=== PATIENT | female | born 1990 | race Caucasian/White ===

== ENCOUNTER 2021-10-02 11:45 | Inpatient (IN) | payer BC ==
[~2021-10-02] VITALS: Ht 160 cm; Wt 84.7 kg
[2021-10-02] VITALS (25 sets, daily range): BP systolic 106–140; BP diastolic 55–86
[2021-10-02 12:23] LABS: BILIRUBIN,URINE NEGATIVE (NEGATIVE); CLARITY,URINE CLOUDY; COLOR,URINE YELLOW; GLUCOSE, URINE (UA) NEGATIVE (NEGATIVE); KETONES,URINE NEGATIVE (NEGATIVE); LEUKOCYTE ESTERASE ,URINE 3+ (NEGATIVE); NITRITE,URINE NEGATIVE (NEGATIVE); PH,URINE 6.5 (5-9); PROTEIN,URINE TRACE (NEGATIVE)
[2021-10-02 12:37] LABS: BACTERIA,URINE MODERATE /HPF; RBC,URINE 0-2 /HPF; WBC,URINE >100 /HPF
[2021-10-02 12:38] LABS: YEAST,URINE FEW /HPF
[2021-10-02] MEDS ORDERED: AMPICILLIN FOR IV USE 2,000 MG in NS (IVPB) 50 ML IV SCH (13:11)
[2021-10-02] MEDS ORDERED: OXYTOCIN PRE-MIX DRIP 500 ML IV SCH ×2 (13:15→23:00)
[2021-10-02] MEDS ORDERED: MINERAL OIL 30 ML TOP PRN (13:15)
[2021-10-02] MEDS ORDERED: AMPICILLIN 2,000 MG/14.8 ML (IV USE) ONE (13:17)
[2021-10-02] MEDS ORDERED: D5 LR IV SOLUTION 1,000 ML IV ONE (13:17)
[2021-10-02] MEDS ORDERED: WATER (STERILE) FOR INJECTION 0 ML ONE (13:17)
[2021-10-02] MEDS: D5 LR IV SOLUTION 1,000 ML IV SCH ×2 (13:38→21:10)
[2021-10-02 13:54] LABS: BASOPHILS % (AUTO) 0 % (0-10); EOSINOPHILS # (AUTO) 0.5 10^3/uL (0.0-0.3); EOSINOPHILS % (AUTO) 5 % (0-10); HEMATOCRIT 36 % (35-52); HEMOGLOBIN 11.9 g/dL (11.5-16.0); LYMPHOCYTES # (AUTO) 1.6 10^3/uL (1.0-4.0); LYMPHOCYTES % (AUTO) 18 % (12-44); MEAN CORPUSCULAR HEMOGLOBIN 29 pg (25-34); MEAN CORPUSCULAR HGB CONC 33 g/dL (32-36); MEAN CORPUSCULAR VOLUME 88 fL (80-99); MONOCYTES # (AUTO) 0.7 10^3/uL (0.0-1.0); MONOCYTES % (AUTO) 7 % (0-12); NEUTROPHILS # (AUTO) 6.2 10^3/uL (1.8-7.8); NEUTROPHILS % (AUTO) 68 % (42-75); PLATELET COUNT 285 10^3/uL (130-400)
--- NOTE | 2021-10-02 17:39 | History & Physical-OB ---
OB - Chief Complaint & HPI Date/Time Date of Admission: Date of Admission: Oct 02, 2021 at 13:09 Date seen by a Provider: Oct 02, 2021 Time Seen by a Provider: 12:05 Chief Complaint/History Hx : 3 Hx Para: 2 Expected Date of Delivery: Sep 23, 2021 Gestational Age in Weeks: 41 Gestational Age in Days: 2 Other reason for admission: She came in to check on her baby because she is post dates. + FM. Occassional mild ctxs. No LOF or Vag bleeding History of Labs O+, Ab neg, Rub Imm HIV/RPR/HepB/C NR GBS + in urine on admit Normal 1 hr GTT Allergies and Home Medications Allergies Coded Allergies: No Known Drug Allergies (Unverified , 10/02/21) Patient Home Medication List Home Medication List Reviewed: Yes OB - History Hx of Present Care: Yes Ultrasounds: Normal mid trimester US Obstetrical Complications: None Medical Complications: None Obstetrical History Hx : 3 Hx Para: 2 Hx # Term Pregnancies: 2 Delivery History Hx Dystocia: No Hx Forceps Assisted Delivery: No Hx Vacuum Extraction Assisted: No Hx Distress: No Patient Past Medical History None Social History/Family History Alcohol Use: Denies Use Recreational Drug Use: No Smoking Cessation: Never smoker 2nd Hand Smoke Exposure: No Immunizations Influenza Vaccine Up-to-Date: No; Not Current Tetanus Booster (TDap): Less than 5yrs (07/19/21) Rubella: immune RPR/VDRL: Negative GBS Status: Positive HBsAG: Negative OB - Admission Exam Physical Exam Vitals: Vital Signs 10/02/21 12:12 Temp 36.4 Pulse 82 Resp 18 Pulse Ox 99 O2 Delivery Room Air HEENT: NCAT Heart: Rhythm Normal Lungs: Clear Abdomen: Gravid Cervical Dilatation: 3cm Effacement: 75% Station: +1 Membranes: Intact Heart Rate: 140's Accelerations: Accelerations Present Decelerations: Variable Decelerations Short Term Variability: Present Resident Care Manager Rn Variability: Average (6-25) Contractions on Admission: >10 Minutes Apart Intensity: Moderate Labs Laboratory Tests Test 10/02/21 12:00 10/02/21 13:31 Range/Units Urine Color YELLOW Urine Clarity CLOUDY Urine pH 6.5 5-9 Urine Specific [place] 1.025 H 1.016-1.022 Urine Protein TRACE H NEGATIVE Urine Glucose (UA) NEGATIVE NEGATIVE Urine Ketones NEGATIVE NEGATIVE Urine Nitrite NEGATIVE NEGATIVE Urine Bilirubin NEGATIVE NEGATIVE Urine Urobilinogen 1.0 < = 1.0 MG/DL Urine Leukocyte Esterase 3+ H NEGATIVE Urine RBC (Auto) TRACE-I H NEGATIVE Urine RBC 0-2 /HPF Urine WBC >100 H /HPF Urine Squamous Epithelial Cells 10-25 H /HPF Urine Crystals NONE /LPF Urine Bacteria MODERATE H /HPF Urine Casts NONE /LPF Urine Mucus SMALL H /LPF Urine Yeast FEW H /HPF Urine Culture Indicated YES White Blood Count 9.0 4.3-11.0 10^3/uL Red Blood Count 4.05 3.80-5.11 10^6/uL Hemoglobin 11.9 11.5-16.0 g/dL Hematocrit 36 35-52 % Mean Corpuscular Volume 88 80-99 fL Mean Corpuscular Hemoglobin 29 25-34 pg Mean Corpuscular Hemoglobin Concent 33 32-36 g/dL Red Cell Distribution Width 14.3 10.0-14.5 % Platelet Count 285 130-400 10^3/uL Mean Platelet Volume 10.0 9.0-12.2 fL Immature Granulocyte % (Auto) 1 % Neutrophils (%) (Auto) 68 42-75 % Lymphocytes (%) (Auto) 18 12-44 % Monocytes (%) (Auto) 7 0-12 % Eosinophils (%) (Auto) 5 0-10 % Basophils (%) (Auto) 0 0-10 % Neutrophils # (Auto) 6.2 1.8-7.8 10^3/uL Lymphocytes # (Auto) 1.6 1.0-4.0 10^3/uL Monocytes # (Auto) 0.7 0.0-1.0 10^3/uL Eosinophils # (Auto) 0.5 H 0.0-0.3 10^3/uL Basophils # (Auto) 0.0 0.0-0.1 10^3/uL Immature Granulocyte # (Auto) 0.1 0.0-0.1 10^3/uL OB - Assessment/Plan/Diagnosis Assessment Admission Dx Third Trimester 41 week gestation Augmentation of labor Admission Status: Inpatient Order (span 2 midnights) Reason for Inpatient Admission: labor Plan Other Plan 30 yo @ 41.2 wga here for labor Plan GBS +, Started on ampicillin, will AROM once second dose is in, AROM 1725 clear Augment with pitocin protocol Copy Copies To 1: AMAN WELLINGTON MD, HOLLY R MD Oct 02, 2021 17:39
[2021-10-02] MEDS: AMPICILLIN FOR IV USE 1,000 MG in NS (IVPB) 50 ML IV SCH ×2 (18:05→22:03)
[2021-10-02] MEDS ORDERED: LIDOCAINE/EPI 2% 1:200,00 (XYLOCAINE) 10 ML VIAL ONE (21:34)
[2021-10-02] MEDS ORDERED: BENZOCAINE/MENTHOL (DERMOPLAST) 56 ML CAN TP PRN (23:00)
[2021-10-02] MEDS ORDERED: WITCH HAZEL(TUCKS) 40 EA JAR TOP PRN (23:00)
--- NOTE | 2021-10-02 23:00 | OB Labor & Delivery Record ---
Vag Delivery Note Vag Delivery Note Date of Delivery: 10/02/21 Preoperative Diagnosis: Nito Eddy is a (30 /Para 3 / 2, Gestational Age (wks)41.2 here for labor Postoperative Diagnosis: Same Surgeon: AMAN WELLINGTON MD Cooling Room Attendant: None Anesthesia: Natural Delivery Type: @ 2231 Findings: Viable female infant, apgars 9/10, weight 7#9, 3430 grams Lacerations: 1st degree perineal and bilateral periurethral Intact placenta with 3 vessel cord. No nuchal cord, body cord or shoulder d ystocia Estimated Blood Loss: 120 ml Complications: None Condition: Stable Description of Procedure: The patient is a 30 year old female who presented in labor with variable decelerations and the decision to augment and deliver patient due to being over a week post dates. She was admitted and informed consent was obtained. Her labor course was remarkable for variable decelerations. She progressed to complete dilatation and began to push. She was then set up for delivery. The infant's head was delivered atraumatically in the RODRICK position. The shoulders and remainder of the 's body were then delivered without difficulty. Upon delivery, the head was held below the level of the perineum and the mouth and nares were bulb suctioned. The cord was doubly clamped and cut by FOB after 3 min delay and the was handed attended to by the pediatric staff on maternal abdomen. An intact placenta with 3-vessel cord delivered via Ly and there was found to be minimal bleeding.~ Vigorous fundal massage was performed and the fundus was found to be firm. IV oxytocin was given. Examination of the vagina and perineum revealed a 1st degree perineal laceration repaired in the usual fashion with 3-0 vicryl suture and mild bilateral avery urethral laceration that did not require repair. Following the repair, sponge, instrument and needle counts were correct. Mom and baby were both in stable condition in the labor suite. Vitals - Labs Vital Signs - I&O Vital Signs Date Time Temp Pulse Resp B/P (MAP) Pulse Ox O2 Delivery O2 Flow Rate FiO2 10/02/21 22:00 36.9 53 18 124/74 (91) Room Air 10/02/21 21:30 65 18 111/69 (83) Room Air 10/02/21 21:15 67 18 114/72 (86) Room Air 10/02/21 21:00 56 18 124/78 (93) Room Air 10/02/21 20:45 65 18 140/73 (95) Room Air 10/02/21 20:00 62 18 117/73 (88) Room Air 10/02/21 19:45 69 18 117/67 (84) Room Air 10/02/21 19:30 36.7 60 18 121/58 (79) Room Air 10/02/21 19:15 69 18 108/60 (76) Room Air 10/02/21 19:00 36.7 70 18 120/67 (84) Room Air 10/02/21 18:10 70 18 115/73 (87) Room Air 10/02/21 17:40 63 18 119/68 (85) Room Air 10/02/21 16:40 62 18 108/62 (77) Room Air 10/02/21 16:10 70 18 122/67 (85) Room Air 10/02/21 15:40 80 18 110/58 (75) Room Air 10/02/21 15:20 71 18 133/78 (96) Room Air 10/02/21 14:40 73 18 117/58 (77) Room Air 10/02/21 14:10 63 18 112/58 (76) Room Air 10/02/21 12:12 36.4 82 18 99 Room Air 10/02/21 12:05 36.4 88 18 99 Room Air Labs Laboratory Tests 10/02/21 12:00: Urine Color YELLOW, Urine Clarity CLOUDY, Urine pH 6.5, Urine Specific [place] 1.025H, Urine Protein TRACEH, Urine Glucose (UA) NEGATIVE, Urine Ketones NEGATIVE, Urine Nitrite NEGATIVE, Urine Bilirubin NEGATIVE, Urine Urobilinogen 1.0, Urine Leukocyte Esterase 3+H, Urine RBC (Auto) TRACE-IH, Urine RBC 0-2, Urine WBC >100H, Urine Squamous Epithelial Cells 10-25H, Urine Crystals NONE, U rine Bacteria MODERATEH, Urine Casts NONE, Urine Mucus SMALLH, Urine Yeast FEWH, Urine Culture Indicated YES 10/02/21 13:31: White Blood Count 9.0, Red Blood Count 4.05, Hemoglobin 11.9, Hematocrit 36, Mean Corpuscular Volume 88, Mean Corpuscular Hemoglobin 29, Mean Corpuscular Hemoglobin Concent 33, Red Cell Distribution Width 14.3, Platelet Count 285, Mean Platelet Volume 10.0, Immature Granulocyte % (Auto) 1, Neutrophils (%) (Auto) 68, Lymphocytes (%) (Auto) 18, Monocytes (%) (Auto) 7, Eosinophils (%) (Auto) 5, Basophils (%) (Auto) 0, Neutrophils # (Auto) 6.2, Lymphocytes # (Auto) 1.6, Monocytes # (Auto) 0.7, Eosinophils # (Auto) 0.5H, Basophils # (Auto) 0.0, Immature Granulocyte # (Auto) 0.1 AMAN WELLINGTON MD Oct 02, 2021 23:00
[2021-10-02] MEDS: IBUPROFEN 600 MG (MOTRIN) TAB PO SCH (23:40)
[2021-10-02] MEDS: ACETAMINOPHEN 500 MG TAB (TYLENOL) PO SCH (23:40)
[2021-10-02] MEDS ORDERED: LIDOCAINE/EPI 2% 1:200,00 (XYLOCAINE) 10 ML VIAL INJ ONE (23:45)
[2021-10-03 04:04] VITALS: BP 98/53
[2021-10-03] MEDS: IBUPROFEN 600 MG (MOTRIN) TAB PO SCH ×4 (04:58→23:47)
[2021-10-03] MEDS: ACETAMINOPHEN 500 MG TAB (TYLENOL) PO SCH ×4 (04:58→23:48)
[2021-10-03 05:37] LABS: BASOPHILS % (AUTO) 0 % (0-10); EOSINOPHILS # (AUTO) 0.1 10^3/uL (0.0-0.3); EOSINOPHILS % (AUTO) 1 % (0-10); HEMATOCRIT 33 % (35-52); HEMOGLOBIN 11.1 g/dL (11.5-16.0); LYMPHOCYTES # (AUTO) 1.6 10^3/uL (1.0-4.0); LYMPHOCYTES % (AUTO) 10 % (12-44); MEAN CORPUSCULAR HEMOGLOBIN 30 pg (25-34); MEAN CORPUSCULAR HGB CONC 33 g/dL (32-36); MEAN CORPUSCULAR VOLUME 89 fL (80-99); MEAN PLATELET VOLUME 9.8 fL (9.0-12.2); MONOCYTES # (AUTO) 1.1 10^3/uL (0.0-1.0); MONOCYTES % (AUTO) 7 % (0-12); NEUTROPHILS # (AUTO) 12.3 10^3/uL (1.8-7.8); NEUTROPHILS % (AUTO) 81 % (42-75); PLATELET COUNT 259 10^3/uL (130-400); WHITE BLOOD COUNT 15.3 10^3/uL (4.3-11.0)
[2021-10-03] MEDS ORDERED: CATHETER FLUSH 10 ML SYR IV SCH (06:00)
--- NOTE | 2021-10-03 09:09 | Postpartum Progress Note ---
Note Note Day # 1 Subjective: Patient is without complaints. Ambulating, voiding. Tolerating a regular diet without nausea or vomiting. Normal lochia. Pain is well controlled with oral pain medications. Breast and bottle feeding. Objective: Physical Exam: General - Alert and oriented, no apparent distress Abdomen - Soft, appropriately tender to palpation, non-distended, fundus firm at umbilicus Extremities - no edema, negative Linda's bilaterally Assessment: 30 yo G3 now P3 post- day # 1, status post spontaneous vaginal delivery @ 41.2 wga Recovering well, hemodynamically stable Plan: Routine care. Encourage breast feeding. Encourage ambulation. Plan for discharge tomorrow Vitals - Labs Vital Signs - I&O Vital Signs Date Time Temp Pulse Resp B/P (MAP) Pulse Ox O2 Delivery O2 Flow Rate FiO2 10/03/21 04:04 35.9 70 18 98/53 (68) 96 Room Air 10/02/21 23:44 37.2 76 18 106/55 (72) Room Air 10/02/21 23:30 78 18 112/64 (80) Room Air 10/02/21 22:44 80 18 116/85 (95) Room Air 10/02/21 22:30 76 18 122/86 (98) Room Air 10/02/21 22:15 56 18 118/73 (88) Room Air 10/02/21 22:00 36.9 53 18 124/74 (91) Room Air 10/02/21 21:30 65 18 111/69 (83) Room Air 10/02/21 21:15 67 18 114/72 (86) Room Air 10/02/21 21:00 56 18 124/78 (93) Room Air 10/02/21 20:45 65 18 140/73 (95) Room Air 10/02/21 20:00 62 18 117/73 (88) Room Air 10/02/21 19:45 69 18 117/67 (84) Room Air 10/02/21 19:30 36.7 60 18 121/58 (79) Room Air 10/02/21 19:15 69 18 108/60 (76) Room Air 10/02/21 19:00 36.7 70 18 120/67 (84) Room Air 10/02/21 18:10 70 18 115/73 (87) Room Air 10/02/21 17:40 63 18 119/68 (85) Room Air 10/02/21 16:40 62 18 108/62 (77) Room Air 10/02/21 16:10 70 18 122/67 (85) Room Air 10/02/21 15:40 80 18 110/58 (75) Room Air 10/02/21 15:20 71 18 133/78 (96) Room Air 10/02/21 14:40 73 18 117/58 (77) Room Air 10/02/21 14:10 63 18 112/58 (76) Room Air 10/02/21 12:12 36.4 82 18 99 Room Air 10/02/21 12:05 36.4 88 18 99 Room Air I & O 10/03/21 07:00 Intake Total 2414.8 ml Balance 2414.8 ml Labs Laboratory Tests 10/02/21 12:00: Urine Color YELLOW, Urine Clarity CLOUDY, Urine pH 6.5, Urine Specific [place] 1.025H, Urine Protein TRACEH, Urine Glucose (UA) NEGATIVE, Urine Ketones NEGATIVE, Urine Nitrite NEGATIVE, Urine Bilirubin NEGATIVE, Urine Urobilinogen 1.0, Urine Leukocyte Esterase 3+H, Urine RBC (Auto) TRACE-IH, Urine RBC 0-2, Urine WBC >100H, Urine Squamous Epithelial Cells 10-25H, Urine Crystals NONE, Urine Bacteria MODERATEH, Urine Casts NONE, Urine Mucus SMALLH, Urine Yeast FEWH , Urine Culture Indicated YES 10/02/21 13:31: White Blood Count 9.0, Red Blood Count 4.05, Hemoglobin 11.9, Hematocrit 36, Mean Corpuscular Volume 88, Mean Corpuscular Hemoglobin 29, Mean Corpuscular Hemoglobin Concent 33, Red Cell Distribution Width 14.3, Platelet Count 285, Mean Platelet Volume 10.0, Immature Granulocyte % (Auto) 1, Neutrophils (%) (Auto) 68, Lymphocytes (%) (Auto) 18, Monocytes (%) (Auto) 7, Eosinophils (%) (Auto) 5, Basophils (%) (Auto) 0, Neutrophils # (Auto) 6.2, Lymphocytes # (Auto) 1.6, Monocytes # (Auto) 0.7, Eosinophils # (Auto) 0.5H, Basophils # (Auto) 0.0, Immature Granulocyte # (Auto) 0.1 10/03/21 05:23: White Blood Count 15.3H, Red Blood Count 3.73L, Hemoglobin 11.1L, Hematocrit 33L , Mean Corpuscular Volume 89, Mean Corpuscular Hemoglobin 30, Mean Corpuscular Hemoglobin Concent 33, Red Cell Distribution Width 14.4, Platelet Count 259, Mean Platelet Volume 9.8, Immature Granulocyte % (Auto) 1, Neutrophils (%) (Auto) 81H, Lymphocytes (%) (Auto) 10L, Monocytes (%) (Auto) 7, Eosinophils (%) (Auto) 1, Basophils (%) (Auto) 0, Neutrophils # (Auto) 12.3H, Lymphocytes # (Auto) 1.6, Monocytes # (Auto) 1.1H, Eosinophils # (Auto) 0.1, Basophils # (Auto) 0.0, Immature Granulocyte # (Auto) 0.1 Microbiology 10/02/21 Urine Culture - Preliminary, Resulted Group B Streptococci AMAN WELLINGTON MD Oct 03, 2021 09:09
[2021-10-03 09:20] VITALS: BP 100/58
[2021-10-03] MEDS: FERROUS SULF 325 MG (IRON) TAB PO SCH (09:43)
[2021-10-03] MEDS: DOCUSATE SODIUM 100 MG (COLACE) CAP PO SCH ×2 (09:43→20:42)
[2021-10-03 13:00] VITALS: BP 90/54
[2021-10-03 16:45] VITALS: BP 96/54
[2021-10-03 20:42] VITALS: BP 105/54
[2021-10-04 02:30] VITALS: BP 95/53
[2021-10-04] MEDS: IBUPROFEN 600 MG (MOTRIN) TAB PO SCH ×2 (04:57→11:12)
[2021-10-04 08:00] VITALS: BP 99/52
[2021-10-04] MEDS: DOCUSATE SODIUM 100 MG (COLACE) CAP PO SCH (08:05)
[2021-10-04] MEDS: FERROUS SULF 325 MG (IRON) TAB PO SCH (08:05)
--- NOTE | 2021-10-04 09:40 | Discharge Summary ---
Diagnosis/Chief Complaint Date of Admission Oct 02, 2021 at 13:09 Date of Discharge 10/04/21 Admission Diagnosis Admission Diagnosis Third Trimester 41 week gestation Discharge Diagnosis Term vaginal delivery, uncomplicated Discharge Summary-Simple/Stand Procedures AROM Uncomplicated Discharge Physical Examination Allergies: Coded Allergies: No Known Drug Allergies (Unverified , 10/02/21) Vitals & I&Os Vital Sign - Last 12Hours Date Time Temp Pulse Resp B/P (MAP) Pulse Ox O2 Delivery O2 Flow Rate FiO2 10/04/21 08:00 36.5 79 18 99/52 (68) 99 Room Air General Appearance: Alert, Oriented X3, Cooperative, No Acute Distress HEENT: Mucous Memb Moist/[place] Respiratory: Clear to Auscultation, Normal Air Movement Cardiovascular: Regular Rate, No Murmurs Abdominal: Normal Bowel Sounds, Soft, No Tenderness, No Masses, Other (fundus firm and below umbilicus) Extremities: No Edema, No Tenderness/Swelling Neuro: Normal Speech Psych/Mental Status: Mental Status NL, Mood NL Hospital Course See final discharge diagnosis. Discussion & Recommendations 30 yo G3 now P3 delivered term female via uncomplicated @ 41 weeks Discharge Condition at discharge stable Instructions to patient/family Please see electronic discharge instructions given to patient. Discharge Medications Reviewed and agree with Discharge Medication list on patient's Discharge Instruction sheet AMAN WELLINGTON MD Oct 04, 2021 09:40
[2021-10-04] MEDS ORDERED: IBUP-844 PO (09:41)
[2021-10-04] MEDS ORDERED: FERR325T24 PO (09:41)
[2021-10-04] MEDS ORDERED: DOCU100C37 PO (09:41)
--- NOTE | 2021-10-04 09:42 | Discharge Summary ---
Discharge Inst-[facility] Reconcile Patient Problems Problems Reviewed?: Yes Depart Medications New, Converted or Re-Newed RX: Transmitted to Pharmacy New Medications: Docusate Sodium (Docusate Sodium) 100 Mg Capsule 100 MG PO BID, #28 CAP Ferrous Sulfate (Ferosul) 325 Mg (65 Mg Iron) Tablet 325 MG PO DAILY, #30 TAB Ibuprofen (Ibu) 600 Mg Tablet 600 MG PO Q6H, #90 TAB Follow Up/Instructions Goal/Follow Up: [address] Fragoso Activity Activity: Activity as Tolerated Driving Instructions: You May Drive NO SMOKING: NO SMOKING Nothing Inside Vagina: No Douching, No [place], No Tampons Diet Discharge Diet: No Restrictions Symptoms to Report to : Swelling Increased, Bleeding Excessive, Fever Over 101 Degrees F AMAN FRAGOSO MD Oct 04, 2021 09:42
[2021-10-04] MEDS: ACETAMINOPHEN 500 MG TAB (TYLENOL) PO SCH (11:12)
[2021-10-04 11:30] VITALS: BP 99/52
== END 2021-10-04 11:30 | disposition home or self-care (01) | DRG 807 ==
LOC: WSo 11:45 → LDRP 11:46 → WSo 13:09 → LDRP 10-03 00:40
PROVIDERS: ADMIT Family Medicine; ATTEND Family Medicine
PROC: 10E0XZZ Delivery of Products of Conception, External Approach (ICD-10-PCS; principal; 2021-10-02)
PROC: 10907ZC Drainage of Amniotic Fluid, Therapeutic from Products of Conception, Via Natural or Artificial Opening (ICD-10-PCS; 2021-10-02)
PROC: 0HQ9XZZ Repair Perineum Skin, External Approach (ICD-10-PCS; 2021-10-02)
PROC: 0UQMXZZ Repair Vulva, External Approach (ICD-10-PCS; 2021-10-02)
DX: O48.0 Post-term pregnancy (principal); Z37.0 Single live birth; Z3A.41 41 weeks gestation of pregnancy; O99.824 Streptococcus B carrier state complicating childbirth; O71.82 Other specified trauma to perineum and vulva; O70.0 First degree perineal laceration during delivery
CPT/HCPCS: 36415; 81000; 85025; 86850; 86900; 86901; 87088; 99212